=== PATIENT | female | born 1935 | race Caucasian/White ===

== ENCOUNTER 2016-07-20 14:13 | Emergency (ER) | payer BC ==
[~2016-07-20 14:13] MED LIST: ACIDOPHILU2 PO; ALBUTEROL NEB INH; ALEVE220 MG PO; ARICEPT10 PO; ARICEPT5 PO; ASAB PO; ATV.5 PO; AZACT2 IV; BACDS PO; BIOFREEZE TOP; BISR PR; BUSPIRONE7.5 MG PO; CEFZIL500 MG PO; CIP5 PO; CITRACAL PO; CLARIT10 PO; CORDARONE PO; DIGITEK0.125 MG PO; DULERA 100 MCG/13 GM INH; DULERA 200 MCG/13 GM INH; DUONEB INH; DURICEF PO; FLAGIV500 IV; FLINTSTONE3 PO; FLONASE NAS; FLORASTOR250 MG PO; FOLIC ACID400 MC1 PO; FOLIC PO; GGDM5ML PO; HEPA50006 SC; LEVAQUIN750 MG PO; LIDOCAINE 2% JELLY TOP; LIDOCAINE 3% CREAM TOP; LOP25 PO; LORTAB 5 PO; MAGNESIUM OTC PO; MAGOX4 PO; MOMUD PO; MONOKET PO; MUCINEX600 MG PO; MULTI-VIT/F1; MULTIPLE VIT PO; MVI PO; NICODERM C14 MG/24 H TOP; NORCO1 TA2 PO; NORCO1 TAB PO; PERFOROM INH; PR12.5 PO; PREM625 PO; PRILOSEC OTC20 MG PO; PRILOSEC40 MG PO; PRIN5 PO; PROAIR HFA INH; PROVENT20 INH; PULRESP.5 INH; REM15 PO; SANTYL250 MG/GM TOP; SINGULAIR1 PO; SODBICAR10 PO; SPIRIVA INH; SYMBICORT 160/41 INH INH; T PO; TRENTAL400 PO; VANCO1P IV; VANCOMYCIN 50 MG/ML PO; VANCOMYCIN SOLUTION PO; VENTOLIN HFA INH; VITAMIN B PO; VITAMIN C PO; VITAMIN D1000 UNI1 PO; VITC500 PO; ZINC OTC PO; ZINC PO; ZINC220C PO; ZOCOR20 PO; ZOL50 PO; ZOLOFT25 MG PO; ZYRTEC ALLGY10 MG PO; [UNRECOGNIZED DRUG - CODE] PO
[2016-07-20 15:03] LABS: BASOPHILS 0.5 %; BASOPHILS ABSOLUTE 0.03 10/3/uL (0.0-0.16); EOSINOPHILS 0.3 %; EOSINOPHILS ABSOLUTE 0.02 10/3/uL (0.0-0.53); ER CBC TAT 0 Hrs 09 Mins; HEMATOCRIT 28.3 % (36.0-48.0); HEMOGLOBIN 8.7 g/dL (12.0-16.0); IMMATURE GRANULOCYTES 0.5 %; IMMATURE GRANULOCYTES ABSOLUTE 0.03 10/3/uL (0.0-0.11); LYMPHOCYTES 16.2 %; LYMPHOCYTES ABSOLUTE 0.99 10/3/uL (0.67-4.30); MEAN CORPUS HGB CONC 30.7 g/dL (32.0-36.0); MEAN CORPUSCULAR HEMOGLOB 26.2 pg (26.0-34.0); MEAN CORPUSCULAR VOLUME 85.2 fL (80-100); MEAN PLATELET VOLUME 8.8 fL (9.2-13.0); MONOCYTES 7.5 %; MONOCYTES ABSOLUTE 0.46 10/3/uL (0.21-1.20); NEUTROPHILS ABSOLUTE 4.57 10/3/uL (2.02-8.40); PLATELET COUNT 389 10/3/uL (150-400); RBC DISTRIBUTION WIDTH 17.7 % (12.0-16.0); RED CELL COUNT 3.32 10/6/uL (4.0-5.6); WHITE BLOOD CELLS 6.1 10/3/uL (4.5-10.5)
[2016-07-20 15:04] LABS: MANUAL DIFF NO %
[2016-07-20 15:16] LABS: A/G RATIO 0.5 (0.7-1.9); ALBUMIN 2.2 G/DL (3.5-5.0); ALKALINE PHOSPHATASE 170 U/L (45-117); BUN (BLOOD UREA NITROGEN) 22 MG/DL (6-23); CALCIUM, SERUM 8.2 MG/DL (8.5-10.4); CHLORIDE, SERUM 97 MMOL/L (96-112); CO2 (CARBON DIOXIDE) 30 MMOL/L (24-34); CREATININE 0.85 MG/DL (0.55-1.02); GFR AFRICAN AMERICAN 74 ML/MIN (>=60); GFR NON AFRICAN AMERICAN 64 ML/MIN (>=60); GLOBULIN 4.2 G/DL (2.5-4.1); GLUCOSE, SERUM 83 MG/DL (60-99); POTASSIUM, SERUM 3.5 MMOL/L (3.5-5.3); SGOT(AST) 41 U/L (5-40); SGPT(ALT) 23 U/L (5-65); SODIUM, SERUM 136 MMOL/L (135-148); TOTAL BILIRUBIN 0.9 MG/DL (0-1.2); TOTAL PROTEIN 6.4 G/DL (6.0-8.5)
[2016-07-20 17:29] LABS: ASCORBIC ACID (UR NOT ORDER) 40 (NEG); BILIRUBIN, URINE NEGATIVE (NEG); KETONE, URINE TRACE MG/DL (NEG); LEUKOCYTE ESTERASE(NOT OR LARGE (NEG)
[2016-07-20 17:30] LABS: ER URINALYSIS TAT 0 Hrs 52 Mins; NITRITE (URINE) POS (NEG)
[2016-07-20 17:31] LABS: WBC (NOT ORDERED) (RFLEX) 25 (0-5)
[2016-07-29] MEDS ORDERED: CLARIT10 PO (04:15)
[2016-07-29] MEDS ORDERED: ASAB PO (04:15)
[2016-07-29] MEDS ORDERED: CORDARONE PO (04:15)
[2016-07-29] MEDS ORDERED: PULRESP.5 INH (04:16)
[2016-07-29] MEDS ORDERED: BUSPAR15 M1 PO (04:17)
[2016-07-29] MEDS ORDERED: ARICEPT5 PO (04:17)
[2016-07-29] MEDS ORDERED: DIGITEK0.125 MG PO (04:18)
[2016-07-29] MEDS ORDERED: DUONEB INH (04:19)
[2016-07-29] MEDS ORDERED: FLONASE NAS (04:19)
[2016-07-29] MEDS ORDERED: FLORASTOR250 MG PO (04:19)
[2016-07-29] MEDS ORDERED: MONOKET PO (04:20)
[2016-07-29] MEDS ORDERED: LIDOCAINE 2% JELLY TOP (04:21)
[2016-07-29] MEDS ORDERED: MAGOX4 PO (04:23)
[2016-07-29] MEDS ORDERED: MACROBID PO (04:23)
[2016-07-29] MEDS ORDERED: REM15 PO (04:24)
[2016-07-29] MEDS ORDERED: LOP25 PO (04:24)
[2016-07-29] MEDS ORDERED: THEREMS H PO (04:25)
[2016-07-29] MEDS ORDERED: OXYCONTIN15 MG PO (04:26)
[2016-07-29] MEDS ORDERED: TRENTAL400 PO (04:27)
[2016-07-29] MEDS ORDERED: PRILOSEC40 MG PO (04:28)
[2016-07-29] MEDS ORDERED: PERFOROM INH (04:28)
[2016-07-29] MEDS ORDERED: ZOL50 PO (04:29)
[2016-07-29] MEDS ORDERED: SILVADENE1 % TOP (04:29)
[2016-07-29] MEDS ORDERED: ZOCOR20 PO (04:30)
[2016-07-29] MEDS ORDERED: SODBICAR10 PO (04:30)
[2016-07-29] MEDS ORDERED: VITC500 PO (04:31)
[2016-07-29] MEDS ORDERED: BISR PR (04:37)
[2016-07-29] MEDS ORDERED: GGDM5ML PO (04:38)
[2016-07-29] MEDS ORDERED: NORCO1 TAB PO (04:38)
[2016-07-29] MEDS ORDERED: MOMUD PO (04:39)
== END 2016-07-20 20:42 | disposition home or self-care (01) ==
LOC: ER 14:13
PROVIDERS: Nurse Practitioner
DX: R82.71 Bacteriuria (principal); N39.0 Urinary tract infection, site not specified; D64.9 Anemia, unspecified; E83.51 Hypocalcemia; E88.09 Other disorders of plasma-protein metabolism, not elsewhere classified; J44.9 Chronic obstructive pulmonary disease, unspecified; S72.111D Displaced fracture of greater trochanter of right femur, subsequent encounter for closed fracture with routine healing; I10 Essential (primary) hypertension; K21.9 Gastro-esophageal reflux disease without esophagitis; F32.9 Major depressive disorder, single episode, unspecified; Z87.01 Personal history of pneumonia (recurrent); Z85.828 Personal history of other malignant neoplasm of skin; Z88.1 Allergy status to other antibiotic agents; Z79.82 Long term (current) use of aspirin; Z79.899 Other long term (current) drug therapy
CPT/HCPCS: 71010; 80053; 81001; 85025; 87040; 87077; 87086; 87186; 99285